=== PATIENT | male | born 1950 | race Caucasian/White ===

== ENCOUNTER 2018-04-26 08:30 | Emergency (ER) | payer SELFPAY ==
[2018-04-26 08:37] VITALS: BP 153/99
--- NOTE | 2018-04-26 09:16 | ER Document Report ---
HPI - HPI Pain Level: Denies Notes: Patient is a 67-year-old male with a history of hypertension, type 2 diabetes, recurrent cold sores, acid reflux, and chronic bilateral knee pain who presents to the ED for medication refills until his appointment in a few days. Patient states that he has no new concerns or complaints and is otherwise status quo. Patient tolerates his medications without any side effects to note. He denies any drug allergies. No other concerns or complaints at this time. Denies any headache, fever, neck pain, URI, sore throat, chest pain, palpitations, syncope , cough, shortness of breath, wheeze, dyspnea, abdominal pain, nausea/vomiting/ diarrhea, urinary retention, dysuria, hematuria, or rash. - ROS Systems Reviewed and Negative: Yes All other systems reviewed and negative Past Medical History - Social History Smoking Status: Never Smoker Family History: Reviewed & Not Pertinent Vertical Provider Document - CONSTITUTIONAL Agree With Documented VS: Yes Notes: PHYSICAL EXAMINATION: GENERAL: Well-appearing, well-nourished and in no acute distress. HEAD: Atraumatic, normocephalic. EYES: Pupils equal round and reactive to light, extraocular movements intact, sclera anicteric, conjunctiva are normal. ENT: Nares patent and without discharge. oropharynx clear without exudates. No tonsilar hypertrophy or erythema. Moist mucous membranes. NECK: Normal range of motion, supple without lymphadenopathy LUNGS: Breath sounds clear to auscultation bilaterally and equal. No wheezes rales or rhonchi. HEART: Regular rate and rhythm without murmurs, rubs, gallops. Musculoskeletal: FROM to passive/active. Strength 5+/5. Extremities: No cyanosis, clubbing, or edema b/l. Peripheral pulses 2+. Capillary refill less than 3 seconds. NEUROLOGICAL: Normal speech, normal gait. PSYCH: Normal mood, normal affect. SKIN: Warm, Dry, normal turgor, no rashes or lesions noted. - INFECTION CONTROL TRAVEL OUTSIDE OF THE [place] IN LAST 30 DAYS: No Course - Re-evaluation Re-evalutation: 04/26/18 09:17 Patient is an afebrile, well-hydrated, 67-year-old male who presents to the ED for medication refills. Vitals are acceptable. PE is otherwise unremarkable. No labs or imaging warranted at this time based on H&P. Refills will be provided. Keep consult with PCM this Wednesday. Return to the ED with any worsening/concerning symptoms otherwise as reviewed discharge. Patient is in agreement. - Vital Signs Vital signs: Temp Pulse Resp BP Pulse Ox 97.9 F 87 20 153/99 H 100 04/26/18 08:35 04/26/18 08:35 04/26/18 08:35 04/26/18 08:35 04/26/18 08:35 Discharge - Discharge Clinical Impression: Medication refill Condition: Stable Disposition: HOME, SELF-CARE Additional Instructions: Maintain adequate fluid and food intake Take home medications as directed Low sodium/fat diet Exercise regularly Weight control Monitor blood pressure daily and keep a log Monitor symptoms for any acute changes Recheck with your PCM in 3-5 days Return to the ED with any worsening symptoms and/or development of fever, headache, chest pain, palpitations, syncope, shortness of breath, trouble breathing, abdominal pain, n/v/d, blood in stool/urine, loss of control of bowel /bladder, urinary retention, muscle weakness/paralysis, numbness/tingling, or other worsening symptoms that are concerning to you. Prescriptions: Lisinopril 20 mg PO BID #10 tablet Meloxicam 7.5 mg PO BID PRN #10 tablet PRN Reason: Metformin HCl [Glucophage 500 mg Tablet] 500 mg PO BID #10 tablet Pantoprazole Sodium 40 mg PO DAILY #10 tablet. Valacyclovir HCl [Valacyclovir] 500 mg PO DAILY #10 tablet Forms: Elevated Blood Pressure Referrals: [facility] [Provider Group] - Follow up in 3-5 days
== END 2018-04-26 09:27 | disposition home or self-care (01) ==
LOC: ER 08:30
DX: G89.29 Other chronic pain (principal); M25.562 Pain in left knee; M25.561 Pain in right knee; E11.9 Type 2 diabetes mellitus without complications
CPT/HCPCS: 99281

== ENCOUNTER 2018-05-20 07:28 | Emergency (ER) | payer SELFPAY ==
[2018-05-20 07:35] VITALS: BP 123/85
--- NOTE | 2018-05-20 07:59 | ER Document Report ---
ED Skin Rash/Insect Bite/Abscs - General Chief Complaint: Skin Problem Stated Complaint: LIP PAIN Time Seen by Provider: 05/20/18 07:43 Mode of Arrival: Ambulatory Information source: Patient Notes: Patient is a 67-year-old male who presents to the ER today for chapped lips times approximately 3 weeks. Patient does work outside in the hot sun as it is the middle of the summer and states that he does drink a lot of water but is unsure if he is drinking enough. Patient states since his lip started to chop he has been using Vaseline, Chapstick without relief. He denies any rash or chapped skin, dry skin anywhere else. TRAVEL OUTSIDE OF THE [place] IN LAST 30 DAYS: No - Related Data Allergies/Adverse Reactions: No Known Allergies Allergy (Unverified 05/20/18 07:29) Past Medical History - General Information source: Patient - Social History Smoking Status: Unknown if Ever Smoked Family History: Reviewed & Not Pertinent - Past Medical History Cardiac Medical History: Reports: Hx Hypertension Endocrine Medical History: Reports: Hx Diabetes Mellitus Type 2 Renal/ Medical History: Denies: Hx Peritoneal Dialysis Review of Systems - Review of Systems Constitutional: No symptoms reported EENT: See HPI Cardiovascular: No symptoms reported Respiratory: No symptoms reported Gastrointestinal: No symptoms reported Genitourinary: No symptoms reported Male Genitourinary: No symptoms reported Musculoskeletal: No symptoms reported Skin: No symptoms reported Hematologic/Lymphatic: No symptoms reported Neurological/Psychological: No symptoms reported Physical Exam - Vital signs Vitals: Temp Pulse Resp BP Pulse Ox 97.9 F 89 18 123/85 95 05/20/18 07:33 05/20/18 07:33 05/20/18 07:33 05/20/18 07:33 05/20/18 07:33 - Notes Notes: PHYSICAL EXAMINATION: GENERAL: Anxious appearing, but in no acute distress. HEAD: Atraumatic, normocephalic. EYES: Pupils equal round and reactive to light, extraocular movements intact, sclera anicteric, conjunctiva are normal. ENT: ear canals without erythema or foreign body, TMs pearly canales with good bony landmarks, nares patent, oropharynx clear without exudates. Moist mucous membranes. Mild to moderate chapped bottom lip NECK: Normal range of motion, supple without lymphadenopathy LUNGS: CTAB and equal. No wheezes rales or rhonchi. HEART: Regular rate and rhythm without murmurs EXTREMITIES: Normal range of motion, no pitting edema. No cyanosis. NEUROLOGICAL: Cranial nerves grossly intact. Normal sensory/motor exams. PSYCH: Normal mood, normal affect. SKIN: Warm, Dry, normal turgor, no rashes or lesions noted Course - Vital Signs Vital signs: Temp Pulse Resp BP Pulse Ox 97.9 F 89 18 123/85 95 05/20/18 07:33 05/20/18 07:33 05/20/18 07:33 05/20/18 07:33 05/20/18 07:33 Discharge - Discharge Clinical Impression: Chapped lips Condition: Stable Disposition: HOME, SELF-CARE Additional Instructions: Drink at least 80 oz of water a day! That's per your weight, a little MORE if you work outside! Return immediately for any new or worsening symptoms. Follow up with primary care provider, call tomorrow to make followup appointment. Prescriptions: Mineral Oil/Hydrophil Petrolat [Aquaphor Ointment] 396 gm TP TID #1 oint...g.
== END 2018-05-20 08:05 | disposition home or self-care (01) ==
LOC: ER 07:28
DX: K13.0 Diseases of lips (principal); I10 Essential (primary) hypertension; E11.9 Type 2 diabetes mellitus without complications
CPT/HCPCS: 99283

== ENCOUNTER 2020-02-23 16:09 | Observation (INO) | payer MEDICARE, MEDICAID ==
[2020-02-23] MEDS ORDERED: NITROGLYCERIN 2% OINTMENT 1 GM PACKET TP ONE (16:59)
[2020-02-23] MEDS ORDERED: FENTANYL CITRATE INJ/PF 100 MCG/2 ML AMPUL IV ONE ×3 (16:59→19:25)
[2020-02-23] MEDS ORDERED: ASPIRIN 81 MG TABLET, CHEWABLE PO ONE (17:00)
[2020-02-23 17:01] LABS: ABSOLUTE BASOPHILS # (AUTO) 0.1 10^3/uL (0.0-0.2); ABSOLUTE EOSINOPHILS # (AUTO) 0.1 10^3/uL (0.0-0.6); ABSOLUTE LYMPHOCYTES (AUTO) 3.5 10^3/uL (0.5-4.7); ABSOLUTE MONOCYTES (AUTO) 0.6 10^3/uL (0.1-1.4); ABSOLUTE NEUT (AUTO) 3.5 10^3/uL (1.7-8.2); BASOPHILS % (AUTO) 0.9 % (0-2); EOSINOPHILS % (AUTO) 1.5 % (0-6); HEMATOCRIT 43.4 % (37.9-51.0); LYMPHOCYTES % (AUTO) 45.2 % (13-45); MEAN CORPUSCULAR HEMOGLOBIN 28.1 pg (27.0-33.4); MEAN CORPUSCULAR HGB CONC 34.6 g/dL (32.0-36.0); MEAN CORPUSCULAR VOLUME 81 fl (80-97); MONOCYTES % (AUTO) 7.2 % (3-13); PLATELET COUNT 361 10^3/uL (150-450); RED BLOOD COUNT 5.33 10^6/uL (4.35-5.55); RED CELL DISTRIBUTION WIDTH 16.4 % (11.5-14.0); SEGMENTED NEUTROPHILS % (AUTO) 45.2 % (42-78); TOTAL CELLS COUNTED % (AUTO) 100 %; WHITE BLOOD COUNT 7.8 10^3/uL (4.0-10.5)
[2020-02-23 17:20] LABS: ALBUMIN 4.8 g/dL (3.5-5.0); ALKALINE PHOSPHATASE 85 U/L (38-126); ANION GAP 15 (5-19); ASPARTATE AMINO TRANSFERASE 34 U/L (17-59); BILIRUBIN,DIRECT 0.2 mg/dL (0.0-0.4); BILIRUBIN,TOTAL 0.7 mg/dL (0.2-1.3); BLOOD UREA NITROGEN 17 mg/dL (7-20); CALCIUM 9.5 mg/dL (8.4-10.2); CARBON DIOXIDE 19 mmol/L (22-30); CHLORIDE 104 mmol/L (98-107); CREATINE KINASE 107 U/L (55-170); GLUCOSE 97 mg/dL (75-110); POTASSIUM 4.2 mmol/L (3.6-5.0)
[2020-02-23 17:31] LABS: CREATINE KINASE MB 1.06 ng/mL (<4.55)
[2020-02-23 17:32] LABS: TROPONIN I < 0.012 ng/mL
--- NOTE | 2020-02-23 17:50 | ER Document Report ---
ED General - General TRAVEL OUTSIDE OF THE [place] IN LAST 30 DAYS: No - Related Data Home Medications: lisinopril. metformin. acyclovir <MATT LARSON - Last Filed: 02/23/20 19:43> <SOM VERONICA IV - Last Filed: 02/23/20 21:00> - General Chief Complaint: Chest Pain Stated Complaint: BAD CHEST PAIN - HPI Notes: Chief complaint: Chest pain 69-year-old male with history of type 2 diabetes and hypertension but no known history of coronary disease presents for evaluation of chest pain. Patient says he was engaged in light activity at home this morning when he started having central chest pain which he describes as "heaviness". This is nonradiating and is not affected by movement, respirations or eating. Mild nausea without vomiting. No dyspnea. Non-smoker. No known history of hyperlipidemia. Family history is remarkable for a brother who has had a cardiac transplant. No personal or family history of thromboembolic disease. HEART Score: HISTORY 2 ECG 1 AGE 4 RISK FACTORS 2 TROPONIN >3x=0 TOTAL: 7 If HEART score is = 3 AND both tronponin measurments are normal, the 30 day risk of a major adverse cardiac event (all-cause mortality, myocardia infarction or need for coronary revscularization) is < 1% (Sensitivity 100%, NPV 100%). (MATT LARSON) - Related Data Allergies/Adverse Reactions: No Known Allergies Allergy (Unverified 05/20/18 07:29) Past Medical History - General Information source: Patient - Social History Smoking Status: Never Smoker Chew tobacco use (# tins/day): No Frequency of alcohol use: Occasional Drug Abuse: None Family History: Reviewed & Not Pertinent Patient has suicidal ideation: No Patient has homicidal ideation: No - Past Medical History Cardiac Medical History: Reports: Hx Hypertension Endocrine Medical History: Reports: Hx Diabetes Mellitus Type 2 Renal/ Medical History: Denies: Hx Peritoneal Dialysis <MATT LARSON - Last Filed: 02/23/20 19:43> Review of Systems <MATT LARSON - Last Filed: 02/23/20 19:43> - Review of Systems Notes: Constitutional: Negative for fever. HENT: Negative for sore throat. Eyes: Negative for visual changes. Cardiovascular: As per HPI. Respiratory: Negative for shortness of breath. Gastrointestinal: As per HPI. Genitourinary: Negative for dysuria. Musculoskeletal: Negative for back pain. Skin: Negative for rash. Neurological: Negative for headaches, weakness or numbness. 10 point ROS negative except as marked above and in HPI. (MATT LARSON) Physical Exam <MATT LARSON - Last Filed: 02/23/20 19:43> - Vital signs Vitals: Temp Pulse Resp BP Pulse Ox 97.7 F 124 H 24 H 140/94 H 98 02/23/20 16:22 02/23/20 16:22 02/23/20 16:22 02/23/20 16:22 02/23/20 16:22 - Notes Notes: GENERAL: Elderly male appearing flushed and anxious and holding his hand over central chest area. SKIN: Good turgor no rashes. HEAD: Normocephalic atraumatic. EYES: PERRLA. EOMI. Conjunctivae and sclerae clear. EARS: CANALS AND TMS CLEAR. NOSE: CLEAR. MOUTH: Moist mucosa. Good dentition. No stridor or edema. No drooling. NECK: Supple. No masses or thyromegaly. No adenopathy. Carotids 2+ without bruits. No JVD. BACK: Symmetrical without tenderness. CHEST: Respirations unlabored. Breath sounds clear and symmetrical. HEART: Regular rhythm. No murmur gallop or rub. ABDOMEN: Soft nontender without masses, organomegaly or rebound. Bowel sounds normally active. No bruits. GENITALIA: Deferred. EXTREMITIES: No edema. No calf tenderness. Cap refill less than 1.5 seconds. Dorsalis pedis and posterior tibial pulses 3+ and symmetrical. NEUROLOGICAL: GCS 15. Alert and oriented x3. Fluent speech. Cranial nerves II through XII intact. Sensorimotor and cerebellar normal. Normal tone. PSYCHIATRIC: Anxious affect. (MATT LARSON) Course - Laboratory Result Diagrams: 02/23/20 14:35 02/23/20 14:35 <MATT LARSON - Last Filed: 02/23/20 19:43> - Laboratory Result Diagrams: 02/23/20 14:35 02/23/20 14:35 - Consults dr. dainela monroe Time consulted: 20:58 - dr monroe accepted pt for admission <SOM VERONICA IV - Last Filed: 02/23/20 21:00> - Re-evaluation Re-evalutation: 02/23/20 19:45 Initial presentation suggestive possibility of acute coronary syndrome with other considerations to include pericarditis, PE and aortic dissection. Patient's blood pressure was mildly elevated on arrival. He was given oral aspirin and transdermal nitroglycerin was placed. He was also given some IV fentanyl. His chest x-ray was unremarkable. His initial troponin was normal. D-dimer was mildly elevated. He subsequently had a CTA of the chest which showed no evidence of pulmonary embolus nor dissection. His initial EKG was remarkable only for sinus tachycardia. He subsequently had 2 additional EKGs both of which failed to show any acute ST changes although he did have persistent sinus tachycardia. He reported incomplete relief of his discomfort with 2 doses of IV fentanyl. A second troponin has been requested and is pending at this time. His sed rate is normal. He did not have any evidence of pericardial effusion on CT scan. He does not have a fever. He does not have an audible rub. (MATT LARSON) - Vital Signs Vital signs: Temp Pulse Resp BP Pulse Ox 98.8 F 124 H 15 155/102 H 96 02/23/20 16:47 02/23/20 16:22 02/23/20 20:01 02/23/20 20:01 02/23/20 20:01 - Laboratory Laboratory results interpreted by me: 02/23/20 02/23/20 02/23/20 14:35 14:35 14:35 RDW 16.4 H Lymph % (Auto) 45.2 H D-Dimer 1.70 H Carbon Dioxide 19 L - EKG Interpretation by Me Additional EKG results interpreted by me: 02/23/20 19:43 Initial twelve-lead EKG at 1617 hrs. reviewed contemporaneously by me demonstra ting a sinus tachycardia and some delayed precordial R wave progression suggesting the possibility of old posterior infarct. No acute ST changes were appreciated however. EKG repeat was obtained at 1754 hrs. demonstrating sinus tachycardia with no other significant changes appreciated. EKG #3 was obtained at 1932 hrs. again demonstrating only sinus tachycardia with a rate of 120. (MATT LARSON) - Consults dr. daniela monroe Reason for consultation: 02/23/20 20:58 chest pain (SOM VERONICA IV) Discharge <MATT LARSON E - Last Filed: 02/23/20 19:43> - Discharge Admitting Provider: David (Hospitalist) Unit Admitted: Telemetry <SOM VERONICA IV - Last Filed: 02/23/20 21:00> - Discharge Clinical Impression: Metabolic encephalopathy, Hyponatremia, History of schizoaffective disorder Altered mental status Qualifiers: Altered mental status type: somnolence Qualified Code(s): R40.0 - Somnolence Respiratory failure Qualifiers: Chronicity: acute on chronic Respiratory failure complication: hypoxia and hypercapnia Qualified Code(s): J96.21 - Acute and chronic respiratory failure with hypoxia Condition: Good Disposition: ADMITTED OBSERVATION
--- NOTE | 2020-02-23 17:54 | RADIOLOGY REPORT (SQ) ---
EXAM DESCRIPTION: CHEST SINGLE VIEW IMAGES COMPLETED DATE/TIME: 02/23/2020 5:46 pm REASON FOR STUDY: cp COMPARISON: None. EXAM PARAMETERS: NUMBER OF VIEWS: One view. TECHNIQUE: Single frontal radiographic view of the chest acquired. RADIATION DOSE: NA LIMITATIONS: None. FINDINGS: LUNGS AND PLEURA: No opacities, masses or pneumothorax. No pleural effusion. MEDIASTINUM AND HILAR STRUCTURES: No masses. Contour normal. HEART AND VASCULAR STRUCTURES: Heart normal in size. Normal vasculature. BONES: No acute findings. HARDWARE: None in the chest. OTHER: No other significant finding. IMPRESSION: NO ACUTE RADIOGRAPHIC FINDING IN THE CHEST. TECHNICAL DOCUMENTATION: JOB ID: [id number] 2010 [employer]- All Rights Reserved Reading location - IP/workstation name: [email or web address]
--- NOTE | 2020-02-23 19:00 | RADIOLOGY REPORT (SQ) ---
EXAM DESCRIPTION: CTA CHEST IMAGES COMPLETED DATE/TIME: 02/23/2020 6:43 pm REASON FOR STUDY: r/o PE, r/o dissection COMPARISON: None. TECHNIQUE: CT scan of the chest performed using helical scanning technique with dynamic intravenous contrast injection. Images reviewed with lung, soft tissue and bone windows. Reconstructed coronal and sagittal MPR images reviewed. Additional 3 dimensional post-processing performed to develop Maximal Intensity Projection images (NE P). All images stored on PACS. All CT scanners at this facility use dose modulation, iterative reconstruction, and/or weight based d osing when appropriate to reduce radiation dose to as low as reasonably achievable (ALARA). [facility]: Dose Right [facility]: CareDose [facility]: Dose Right [facility]: Teradose 4D [facility]: [employer] CONTRAST TYPE AND DOSE: contrast/concentration: Isovue 350.00 mg/ml; Total Contrast Delivered: 65.0 ml; Total Saline Delivered: 80.0 ml 65 mL Omnipaque 350- low osmolar. Contrast bolus adequate for pulmonary arteries and aorta. RENAL FUNCTION: BUN 17 creatinine 0.79 RADIATION DOSE: CT Rad equipment meets quality standard of care and radiation dose reduction techniq ues were employed. CTDIvol: 13.2 - 20.4 mGy. DLP: 856 mGy-cm. . LIMITATIONS: None. FINDINGS: LUNGS AND PLEURA: No infiltrate, effusion, or mass. AORTA AND GREAT VESSELS: No aneurysm. No dissection. HEART: No pericardial effusion. Moderate to marked coronary artery calcifications. PULMONARY ARTERIES: No emboli visualized in the main pulmonary arteries or the segmental branches. HILAR AND MEDIASTINAL STRUCTURES: No identified masses or abnormal nodes. HARDWARE: None in the chest. UPPER ABDOMEN: No significant findings. Limited exam. THYROID AND OTHER SOFT TISSUES: No masses. No adenopathy. BONES: No acute or significant finding. 3D MIPS: Confirm above findings. OTHER: No other significant finding. IMPRESSION: There is no pulmonary embolus. There is no aortic aneurysm or dissection. No acute tho racic findings. COMMENT: Quality ID # [id number]: Final reports with documentation of one or more dose reduction techniques (e.g., Automated exposure control, adjustment of the mA and/or kV according to patient size, use of iterative reconstruction technique) TECHNICAL DOCUMENTATION: JOB ID: [id number] 2010 [employer]- All Rights Reserved Reading location - IP/workstation name: [email or web address]
--- NOTE | 2020-02-23 20:01 | EKG REPORT ---
SEVERITY:- OTHERWISE NORMAL ECG - SINUS TACHYCARDIA : Confirmed by: Kelsie Muhammad MD 23-Feb-2020 20:00:29
--- NOTE | 2020-02-23 20:01 | EKG REPORT ---
SEVERITY:- OTHERWISE NORMAL ECG - SINUS TACHYCARDIA : Confirmed by: Kelsie Muhammad MD 23-Feb-2020 20:00:34
--- NOTE | 2020-02-23 20:02 | EKG REPORT ---
SEVERITY:- BORDERLINE ECG - SINUS TACHYCARDIA BORDERLINE T ABNORMALITIES, INFERIOR LEADS : Confirmed by: Kelsie Muhammad MD 23-Feb-2020 20:00:56
[2020-02-23] MEDS ORDERED: KETOROLAC TROMETHAMINE INJ/PF 30 MG/1 ML SDV IV PRN (21:02)
[2020-02-23] MEDS ORDERED: CALCIUM CARBONATE 500 MG TAB.CHEW PO ONE (21:03)
[2020-02-23] MEDS ORDERED: TRAZODONE HCL 50 MG TABLET PO ONE (22:03)
[2020-02-23] MEDS ORDERED: ACETAMINOPHEN 325 MG TABLET PO PRN (22:05)
[2020-02-23] MEDS: NITROGLYCERIN 0.4 MG/TAB 25 TAB/BOTTLE SL PRN ×3 (22:50→23:00)
[2020-02-23] MEDS ORDERED: LORAZEPAM INJ 2 MG/1 ML VIAL IV ONE (23:45)
--- NOTE | 2020-02-24 05:39 | PDOC H&P ---
History of Present Illness Admission Date/PCP: 02/23/20 21:08 Patient complains of: Heart pain History of Present Illness: NORBERT DO is a 69 year old male with a past medical history of hypertension, diabetes, GERD, schizoaffective disorder, anxiety and alcohol abuse. He presents with 12 hours of constant 5-5 left-sided chest pain which began while at rest is heavy and dull in nature without radiation. It was not associated with palpitations, shortness of breath, nausea or vomiting. He is unable to identify alleviating or exacerbating factors. In the emergency department he has an unremarkable work-up including CTA. Patient has a very anxious affect and insists it is his heart that is causing his pain. Patient admits to 3 quarts of malt liquor 6 hours prior to onset. He denies daily use. He denies recent change in medication regiment. Past Medical History Cardiac Medical History: Reports: Hypertension Endocrine Medical History: Reports: Diabetes Mellitus Type 2 Social History Information Source: Patient, Emergency Med Personnel, [facility] Records Smoking Status: Never Smoker Electronic Cigarette use?: No Frequency of Alcohol Use: Heavy Drugs: None - Advance Directive Resuscitation Status: Full Code Family History Family History: CAD, Hypertension Parental Family History Reviewed: Yes Children Family History Reviewed: Yes Sibling(s) Family History Reviewed.: Yes Medication/Allergy Home Medications: Meloxicam 7.5 mg PO BID PRN #10 tablet 04/26/18 Metformin HCl [Glucophage 500 mg Tablet] 500 mg PO BID #10 tablet 04/26/18 Pantoprazole Sodium 40 mg PO DAILY #10 tablet. 04/26/18 Mineral Oil/Hydrophil Petrolat [Aquaphor Ointment] 396 gm TP TID #1 oint...g. 05/20/18 Lisinopril 40 mg PO BID 02/23/20 Omeprazole 20 mg PO DAILY 02/23/20 Valacyclovir HCl [Valacyclovir] 1,000 mg PO DAILY 02/23/20 Allergies/Adverse Reactions: No Known Allergies Allergy (Unverified 05/20/18 07:29) Review of Systems Constitutional: ABSENT: chills, fever(s), headache(s), weight gain, weight loss Eyes: ABSENT: visual disturbances Ears: ABSENT: hearing changes Cardiovascular: ABSENT: chest pain, dyspnea on exertion, edema, orthropnea, palpitations Respiratory: ABSENT: cough, hemoptysis Gastrointestinal: ABSENT: abdominal pain, constipation, diarrhea, hematemesis, hematochezia, nausea, vomiting Genitourinary: ABSENT: dysuria, hematuria Musculoskeletal: ABSENT: joint swelling Integumentary: ABSENT: rash, wounds Neurological: ABSENT: abnormal gait, abnormal speech, confusion, dizziness, focal weakness, syncope Psychiatric: ABSENT: anxiety, depression, homidical ideation, suicidal ideation Endocrine: ABSENT: cold intolerance, heat intolerance, polydipsia, polyuria Hematologic/Lymphatic: ABSENT: easy bleeding, easy bruising Physical Exam Vital Signs: Temp Pulse Resp BP Pulse Ox 98.3 F 132 H 18 114/77 94 02/24/20 01:10 02/24/20 02:00 02/24/20 01:10 02/24/20 01:10 02/24/20 01:10 Intake & Output 02/22/20 02/23/20 02/24/20 11:59 11:59 11:59 Intake Total 0 Output Total 0 Balance 0 Weight 85.7 kg General appearance: PRESENT: no acute distress, well-developed, well-nourished Head exam: PRESENT: atraumatic, normocephalic Eye exam: PRESENT: conjunctiva pink, EOMI, PERRLA. ABSENT: scleral icterus Ear exam: PRESENT: normal external ear exam Mouth exam: PRESENT: moist, tongue midline Neck exam: ABSENT: carotid bruit, JVD, lymphadenopathy, thyromegaly Respiratory exam: PRESENT: clear to auscultation esdras. ABSENT: rales, rhonchi, wheezes Cardiovascular exam: PRESENT: RRR. ABSENT: diastolic murmur, rubs, systolic murmur Pulses: PRESENT: normal dorsalis pedis pul Vascular exam: PRESENT: normal capillary refill GI/Abdominal exam: PRESENT: normal bowel sounds, soft. ABSENT: distended, guarding, mass, organolmegaly, rebound, tenderness Rectal exam: PRESENT: deferred Extremities exam: PRESENT: full ROM. ABSENT: calf tenderness, clubbing, pedal edema Neurological exam: PRESENT: alert, awake, oriented to person, oriented to place, oriented to time, oriented to situation, CN II-XII grossly intact. ABSENT: motor sensory deficit Psychiatric exam: PRESENT: appropriate affect, normal mood. ABSENT: homicidal ideation, suicidal ideation Skin exam: PRESENT: dry, intact, warm. ABSENT: cyanosis, rash Results Laboratory Results: 02/23/20 14:35 02/23/20 14:35 02/23/20 02/23/20 14:35 14:35 WBC 7.8 RBC 5.33 Hgb 15.0 Hct 43.4 MCV 81 MCH 28.1 MCHC 34.6 RDW 16.4 H Plt Count 361 Seg Neutrophils % 45.2 Sodium 137.8 Potassium 4.2 Chloride 104 Carbon Dioxide 19 L Anion Gap 15 BUN 17 Creatinine 0.79 Est GFR ( Amer) > 60 Glucose 97 Calcium 9.5 Total Bilirubin 0.7 AST 34 Alkaline Phosphatase 85 Total Protein 8.0 Albumin 4.8 02/23/20 02/23/20 02/23/20 14:35 14:35 19:40 Creatine Kinase 107 CK-MB (CK-2) 1.06 Troponin I < 0.012 < 0.012 02/24/20 01:29 Creatine Kinase CK-MB (CK-2) Troponin I < 0.012 Impressions: Chest X-Ray 02/23/20 16:58 IMPRESSION: NO ACUTE RADIOGRAPHIC FINDING IN THE CHEST. Chest/Abdomen CTA 02/23/20 18:12 IMPRESSION: There is no pulmonary embolus. There is no aortic aneurysm or dissection. No acute thoracic findings. Assessment and Plan - Diagnosis (1) Atypical chest pain Is this a current diagnosis for this admission?: Yes Plan: Atypical chest pain though the patient's pain is atypical there are multiple risk factors for coronary artery disease and subsequently will observe and evaluation of acute coronary syndrome versus coronary artery disease with anginal equivalents. Cardiac monitoring blood pressure Q6 hours ,TSH, lipid profile, serial cardiac enzymes and cardiac stress test (2) Anxiety Is this a current diagnosis for this admission?: Yes Plan: Trial trazodone, consider Abilify (3) Alcohol abuse Is this a current diagnosis for this admission?: Yes Plan: Unclear chronicity, trial Ativan (4) History of schizoaffective disorder Is this a current diagnosis for this admission?: Yes Plan: Decompensated, Abilify trial initiated. - Time Time Spent with patient: 25-34 minutes - Inpatient Certification Medical Necessity: Need Close Monitoring Due to Risk of Patient Decompensation
[2020-02-24] MEDS ORDERED: NORMAL SALINE 1000 ML 1,000 ML IV ONE (07:49)
[2020-02-24 08:26] LABS: TRIGLYCERIDES 126 mg/dL (<150)
[2020-02-24 08:36] LABS: DIRECT LDL 49 mg/dL (<100)
[2020-02-24] MEDS ORDERED: LISINOPRIL 10 MG TABLET PO SCH (10:00)
[2020-02-24] MEDS ORDERED: ARIPIPRAZOLE 5 MG TABLET PO SCH (10:00)
[2020-02-24] MEDS ORDERED: METFORMIN HCL 500 MG TABLET PO SCH (10:00)
[2020-02-24] MEDS ORDERED: BUSPIRONE HCL 10 MG TABLET PO SCH (10:00)
[2020-02-24] MEDS ORDERED: ASPIRIN 81 MG TABLET, ENT COATED PO SCH (10:00)
[2020-02-24] MEDS ORDERED: CARVEDILOL 12.5 MG TABLET PO SCH ×2 (11:15→22:00)
[2020-02-24 12:54] VITALS: BP 169/98
[2020-02-24] MEDS ORDERED: ALPRAZOLAM 0.25 MG TABLET PO ONE (13:52)
--- NOTE | 2020-02-24 14:52 | Left Against Medical Advice ---
Against Medical Advice Admission Date/Time: 02/23/20 21:08 Primary Care Provider: Date of Patient Emigration: 02/24/20 - Diagnosis: (1) Alcohol abuse Is this a current diagnosis for this admission?: Yes (2) Anxiety Is this a current diagnosis for this admission?: Yes (3) Atypical chest pain Is this a current diagnosis for this admission?: Yes (4) History of schizoaffective disorder Is this a current diagnosis for this admission?: Yes - Summary: Summary: Please see Admission and Progress Notes as well. NORBERT DO is a 69 M, who LEFT AGAINST MEDICAL ADVICE. The Patient was admitted on 02/23/20 21:08. Per H&P by Dr. Hernandez: NORBERT DO is a 69 year old male with a past medical history of hypertension, diabetes, GERD, schizoaffective disorder, anxiety and alcohol abuse. He presents with 12 hours of constant 5-5 left-sided chest pain which began while at rest is heavy and dull in nature without radiation. It was not associated with palpitations, shortness of breath, nausea or vomiting. He is unable to identify alleviating or exacerbating factors. In the emergency department he has an unremarkable work-up including CTA. Patient has a very anxious affect and insists it is his heart that is causing his pain. Patient admits to 3 quarts of malt liquor 6 hours prior to onset. He denies daily use. He denies recent change in medication regiment. Course: Patient was admitted to the medical floor on continuous cardiac telemetry; remained in sinus tachycardia overnight. Serial troponins were negative. He was provided a 1 L normal saline bolus this morning with some improvement in his heart rate from 130s to 110. He was noted to have continued hypertension. Carvedilol 12.5 mg was added to his home dose lisinopril. Patient was monitored for an additional 2 hours to determine effectiveness. His heart rate was noted to improve though his afternoon blood pressure was elevated to 180/130. It was discussed with the patient that the provider (myself) would be long shortly to discuss further antihypertension management and to offer anxiety medications as nursing had noted the patient to be quite anxious and pacing. Unfortunately, the patient elected to leave AGAINST MEDICAL ADVICE and eloped only moments prior to my arrival to the floor.
== END 2020-02-24 14:23 | disposition left against medical advice (07) ==
LOC: ER 16:09 → EH 21:08 → 4S 22:37
PROVIDERS: ADMIT Internal Medicine; ATTEND Internal Medicine
DX: R07.89 Other chest pain (principal); F10.10 Alcohol abuse, uncomplicated; F41.9 Anxiety disorder, unspecified; R00.0 Tachycardia, unspecified; I10 Essential (primary) hypertension; K21.9 Gastro-esophageal reflux disease without esophagitis; E11.9 Type 2 diabetes mellitus without complications; F25.9 Schizoaffective disorder, unspecified; E87.1 Hypo-osmolality and hyponatremia; Z82.49 Family history of ischemic heart disease and other diseases of the circulatory system; Z79.899 Other long term (current) drug therapy; Z79.84 Long term (current) use of oral hypoglycemic drugs
CPT/HCPCS: 93005; 96376; 99285; 96374; 36415 ×2; 82553; 82550; 85025; 85652; 80053; 84484 ×2; 83036; 85379; 80061; 71045; 71275; 93010; A9270 ×10; J3010; J1885; J2060; J3490; J7030; G0378